=== PATIENT | female | born 1980 | race Caucasian/White ===

== ENCOUNTER 2018-07-14 00:15 | Emergency (ER) | payer OTHER ==
[~2018-07-14] VITALS: Ht 152.4 cm; Wt 76.2 kg
[~2018-07-14 00:15] MED LIST: ASPIRIN EC81 M1 PO; AZITHROMYCIN 2250 MG PO; DILANTIN100 MG PO; DOXYCYCLINE 10100 MG PO; ESTRO SUPPORT200 MCG PO; KEFLEX500 MG PO; NOHOMEMEDICATIONS; PERCOCET 5-3251 EACH PO; PRAZOSIN HCL5 MG PO; PREDNISONE 10 M10 M1 PO; PROAIR HFA8.5 GM IH; TOPAMAX 100 MG100 MG PO; TRAZODONE HCL100 MG PO; TUSSIONEX PENN473 ML PO; [UNRECOGNIZED DRUG - OTHER] PO
[2018-07-14 00:21] VITALS: BP 158/62
== END 2018-07-14 00:46 | disposition home or self-care (01) ==
LOC: ER 00:15
DX: G50.0 Trigeminal neuralgia (principal); F17.210 Nicotine dependence, cigarettes, uncomplicated; Z88.6 Allergy status to analgesic agent; Z88.1 Allergy status to other antibiotic agents; Z88.8 Allergy status to other drugs, medicaments and biological substances; Z88.0 Allergy status to penicillin; Z85.830 Personal history of malignant neoplasm of bone

== ENCOUNTER 2019-08-01 01:08 | Emergency (ER) | payer OTHER ==
[~2019-08-01] VITALS: Ht 152.4 cm; Wt 84.4 kg
[2019-08-01 01:52] LABS: HEMOGLOBIN 14.4 gm/dL (12.0-15.0); MCH 27.2 pg (26.0-34.0)
[2019-08-01 01:53] LABS: ABSOLUTE NEUTROPHILS 7.3 thou/uL (1.4-8.2); BASOPHILS 1.1 % (0.0-2.0); EOSINOPHILS 2.1 % (0.0-3.0); HEMATOCRIT 43.1 % (37.0-47.0); LYMPHOCYTES 37.3 % (24.0-44.0); MCHC 33.4 g/dL (28.0-37.0); MCV 81.4 fL (80.0-100.0); MONOCYTES 6.6 % (1.0-8.0); PLATELET COUNT 303 thou/uL (150-400); POLYS 52.9 % (36.0-66.0); RBC 5.29 mil/uL (4.20-5.00); WBC 13.8 thou/uL (4.0-11.0)
[2019-08-01 01:57] LABS: CALCIUM 9.6 mg/dL (8.5-10.1); CREATININE 0.7 mg/dL (0.6-1.0); POTASSIUM 3.9 mmol/L (3.5-5.1)
[2019-08-01 02:03] LABS: TOTAL BILIRUBIN 0.2 mg/dL (<0.1-1.0); TOTAL PROTEIN 7.8 g/dL (6.4-8.2)
[2019-08-01] MEDS ORDERED: TESSALON PERLE100 MG PO (02:20)
[2019-08-01] MEDS ORDERED: VENTOLIN HFA 1818 GM INH (02:20)
[2019-08-01] MEDS ORDERED: LEVAQUIN 750 M750 MG PO (02:20)
[2019-08-01 03:35] VITALS: BP 159/105
--- NOTE | 2019-08-01 08:08 | EKG ---
[address] [address] ELECTROCARDIOGRAM REPORT Name: LEONIDES LEMUS Room #: DEP [facility]#: [id number] ������������������ Admission: 08/01/19 ������������������ Attend Phys: Discharge: 08/01/19 ������������������ Date of : 78 Report #: [id number] ����������������������������������������������������������������� [id number] THIS REPORT FOR: //name// [facility] ED Test Date: 2019-08-01 Test Time: 01:20:43 Pat Name: LEONIDES LEMUS Department: Room: Gender: F Housekeeping Laundry Worker: ALFREDA : 1980 Requested By: Douglas Steven Order Number: [id number] MD: Jose Miguel Orellana Measurements Intervals [place] Rate: 118 P: 52 MI: 147 QRS: 72 QRSD: 84 T: 50 QT: 308 QTc: 432 Interpretive Statements Sinus tachycardia Baseline wander in lead(s) II,V1,V3 Compared to ECG 10/31/2012 22:28:12 Electronically Signed On 08-01-2019 8:07:57 CDT by Jose Miguel Orellana [email or web address] ��������������������������������������������� <ELECTRONICALLY SIGNED> ���������������������������������������� By: Jose Miguel Orellana MD ��������������������������������������������� 08/01/19 0807 0120 0120 Jose Miguel Orellana MD /KENIA
== END 2019-08-01 03:37 | disposition home or self-care (01) ==
LOC: ER 01:08
PROVIDERS: Emergency Medicine
DX: R06.02 Shortness of breath (principal); F17.210 Nicotine dependence, cigarettes, uncomplicated; Z88.6 Allergy status to analgesic agent; Z88.1 Allergy status to other antibiotic agents; Z88.8 Allergy status to other drugs, medicaments and biological substances; Z88.0 Allergy status to penicillin